=== PATIENT | male | born 1990 | race Caucasian/White ===

== ENCOUNTER → 2021-10-30 11:40 | Outpatient (ROUT) | payer OTHER, SELFPAY ==
[2021-10-30 12:15] LABS: COVID19 -Nasal RAPID POSITIVE (Negative)
== END ==
PROVIDERS: Visit Provider Family Medicine
DX: U07.1 COVID-19 (principal); Z20.822 Contact with and (suspected) exposure to COVID-19
CPT/HCPCS: 87635

== ENCOUNTER → 2023-04-30 15:01 | Outpatient (ROUT) | payer OTHER, SELFPAY ==
[2023-04-30 15:20] LABS: Add Manual Diff / Slide Review NO; Basophils Absolute Auto 0 /uL (0-100); Basophils Percent Auto 0.3 % (0-2); Eosinophils Absolute Auto 200 /uL (0-450); Hematocrit 40.9 % (41-53); Hemoglobin 14.2 g/dL (13.5-17.5); Lymphocytes Absolute Auto 1400 /uL (1100-4500); Lymphocytes Percent Auto 18.6 % (25-40); Mean Corpuscular HGB Conc 34.6 % (30-36); Mean Corpuscular Hemoglobin 31.3 PG (26-34); Mean Corpuscular Volume 90.4 fL (80-100); Monocytes Absolute Auto 400 /uL (0-900); Monocytes Percent Auto 5.8 % (3-14); Neutrophils Absolute Auto 5600 /uL (1500-7000); Neutrophils Percent Auto 73.3 % (50-75); Platelet Count 257 X10^3/uL (150-400); Red Blood Cell Count 4.53 X10^6/uL (4.5-5.9); Red Cell Distribution Width 13.6 % (11.6-14.8); White Blood Cell Count 7.7 X10^3/uL (4.5-11.0)
[2023-04-30 17:38] LABS: Alanine Aminotransferase 28 IU/L (<50); Albumin 4.4 g/dL (3.5-5.0); Albumin Globulin Ratio 1.6 (1.0-2.8); Alkaline Phosphatase 68 U/L (38-126); Aspartate Aminotransferase 33 IU/L (17-59); Bilirubin Total 1.4 mg/dL (0.2-1.3); Blood Urea Nitrogen 15 mg/dL (9-20); Calcium 9.4 mg/dL (8.4-10.2); Carbon Dioxide 25 mmol/L (22-32); Chloride 105 mmol/L (98-107); Estimated Glomerular Filt Rate > 60 mL/min (>60); Globulin 2.7 g/dL (1.7-4.1); Glucose 97 mg/dL (70-100); HEMOLYSIS 17 (0-50); Potassium 5.1 mmol/L (3.4-5.1); Sodium 139 mmol/L (137-145); Total Protein 7.1 g/dL (6.3-8.2)
[2023-04-30 18:14] LABS: Testosterone 472 ng/dL (132-813)
[2023-05-04 17:25] LABS: Clam IgE <0.10 kU/L (Class 0); Crab IgE <0.10 kU/L (Class 0); Lobster IgE <0.10 kU/L (Class 0); Oyster IgE <0.10 kU/L (Class 0); Scallop Allergy IgE < 0.10 kU/L (Class 0); Shrimp IgE <0.10 kU/L (Class 0)
== END ==
PROVIDERS: Visit Provider Family Medicine
DX: Z87.892 Personal history of anaphylaxis (principal); Z00.00 Encounter for general adult medical examination without abnormal findings; R53.1 Weakness
CPT/HCPCS: 80053; 84403; 85025; 86003

== ENCOUNTER → 2024-02-12 11:54 | Outpatient (CLI) | payer OTHER, SELFPAY ==
--- NOTE | 2024-02-12 11:58 | DI.RAD.S_ITS ---
PROCEDURE: XR FOOT RT MIN 3V INDICATIONS: RIGHT FOOT PAIN TECHNIQUE: 3 views of the foot were acquired. COMPARISON: None. FINDINGS: Bones: No fractures or dislocations. No suspicious bony lesions. Mild metatarsus adductus and hallux valgus. 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 Soft tissues: No tibiotalar joint effusion. Achilles tendon appears normal. IMPRESSION: 1. No acute bony abnormality. 2. Mild metatarsus adductus and hallux valgus. 3. 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 Dictated by: Jasmina Newton M.D. on 02/13/2024 at 8:04 Approved by: Jasmina Newton M.D. on 02/13/2024 at 8:05
== END ==
PROVIDERS: Referring Provider Family Medicine; Visit Provider Family Medicine
DX: S93.601A Unspecified sprain of right foot, initial encounter (principal); M20.11 Hallux valgus (acquired), right foot; M19.071 Primary osteoarthritis, right ankle and foot; M21.6X1 Other acquired deformities of right foot; X58.XXXA Exposure to other specified factors, initial encounter
CPT/HCPCS: 73630

== ENCOUNTER 2024-02-27 20:45 | Emergency (ER) | payer OTHER, SELFPAY ==
[2024-02-27 20:52] VITALS: BP 159/95; PULSE 95; RESP 18; TEMP 36.8; O2SAT 99; BMI 38.0
--- NOTE | 2024-02-27 20:56 | DI.RAD.S_ITS ---
PROCEDURE: XR ANKLE LT MIN 3V INDICATIONS: rolled ankle/felt a popx3 TECHNIQUE: 3 views of the ankle were acquired. COMPARISON: None. FINDINGS: Bones: No fractures or dislocations. Ankle mortise is normally aligned. No suspicious bony lesions. Soft tissues: Soft tissue swelling around ankle joint is seen. No tibiotalar joint effusion. Achilles tendon appears normal. IMPRESSION: Soft tissue swelling around ankle joint. No acute ankle fracture or dislocation. Dictated by: Brandon Calvo M.D. on 02/27/2024 at 21:58 Approved by: Brandon Calvo M.D. on 02/27/2024 at 22:00
--- NOTE | 2024-02-27 23:52 | ED.LOWEXIN ---
HPI - Extremity Injury (Lower) General Chief Complaint: Extremity Injury, Lower Stated Complaint: lt ankle injury Time Seen by Provider: 02/27/24 23:52 Source: patient Mode of arrival: Wheelchair History of Present Illness HPI Narrative: 33-year-old male presents for left ankle injury. Patient was playing softball when he accidentally stepped on a ball, inverting his foot. Patient heard a pop when he fell. He states that he was initially able to bear some weight on his foot, however 20 seconds later the pain increased and he was not been able to put his full weight on his foot since that time. Denies other accident or injury Related Data Home Medications Medication Instructions Recorded Confirmed fexofenadine-pseudoephedrine ER ##0 04/24/13 180 mg-240 mg tablet,ext.release 24 hr (Farzana-D 24 Hour) ibuprofen 200 mg tablet (Advil) 400 ##0 04/24/13 Allergies Allergy/AdvReac Type Severity Reaction Status Date / Time AMOXICILLIN Allergy Unknown Uncoded 01/08/18 12:13 PENICILLIN Allergy Unknown Uncoded 01/08/18 12:13 Review of Systems Review of Systems Narrative: See HPI Patient History Social History Smoking Status: Current every day smoker Smoking Status: Current every day smoker tobacco type: vaping alcohol intake frequency: a few times a month Substance Use Type: does not use Exam Initial Vital Signs Initial Vital Signs: Vital Signs Temperature 98.2 F 02/27/24 20:52 Pulse Rate 95 H 02/27/24 20:52 Respiratory Rate 18 02/27/24 20:52 Blood Pressure 159/95 H 02/27/24 20:52 Pulse Oximetry 99 02/27/24 20:52 Oxygen Delivery Method Room Air 02/27/24 20:52 Const: Awake, alert, no acute distress, nontoxic appearing MSK: [id number] lateral malleolar swelling, tenderness to palpation lateral malleolus, palpable DP pulses Skin: Warm, Dry, intact, no rashes Neuro: AO x3, CN II-XII grossly intact, moves all extremities Course Orders Ordered: Discontinued Medications Ketorolac Tromethamine (Ketorolac 30 Mg/Ml Vial) 30 mg IM NOW ONE Stop: 02/28/24 00:06 Last Admin: 02/28/24 00:15 Dose: 30 mg Documented By: [facility] Oxycodone/Acetaminophen (Oxycodone/Acetaminophen 5/325 Tablet) 1 tab PO NOW ONE Stop: 02/28/24 00:06 Last Admin: 02/28/24 00:15 Dose: 1 tab Documented By: CELIA Vital Signs Vital signs: Vital Signs - 8 hr 02/28/24 00:09 Pulse Rate 75 Respiratory Rate 16 Blood Pressure 148/76 H Pulse Oximetry 99 MDM - Extremity Injury (Lower) Differential Diagnosis Differential diagnosis: Likely ankle sprain and strain, puncture wound of foot and fracture of toe Imaging Data Extremity x-ray #1: Radiologist's Impression: PROCEDURE: XR ANKLE LT MIN 3V INDICATIONS: rolled ankle/felt a popx3 TECHNIQUE: 3 views of the ankle were acquired. COMPARISON: None. FINDINGS: Bones: No fractures or dislocations. Ankle mortise is normally aligned. No suspicious bony lesions. Soft tissues: Soft tissue swelling around ankle joint is seen. No tibiotalar joint effusion. Achilles tendon appears normal. IMPRESSION: Soft tissue swelling around ankle joint. No acute ankle fracture or dislocation. Dictated by: Brandon Calvo M.D. on 02/27/2024 at 21:58 Approved by: Brandon Calvo M.D. on 02/27/2024 at 22:00 [facility] Narrative Medical decision making narrative: Inversion injury with lateral ankle pain. Neurovascularly intact. X-rays negative for acute fracture. Placed in Sukumar wrap bandage, patient declined crutches stating that he had a pair that fits him at home. Rice instructions counseled at bedside. Pain medications given to patient prior to departure. Discharge Plan Departure Patient Disposition: Home Clinical Impression: Ankle sprain and strain Instructions: DI for Ankle Sprain Activity Restrictions/Additional Instructions: You may take up to 400 mg of ibuprofen and 1000 mg of Tylenol every 6 hours as needed for pain. Take no more than 4000 mg of Tylenol daily. Apply ice to areas of swelling. Elevate your limb above heart level to decrease swelling. Prescriptions: No Action fexofenadine-pseudoephedrine [Farzana-D 24 Hour] 180 MG/240 MG tablet extended release 24 hr Qty: 0 ibuprofen [Advil] 200 MG tablet 400 Qty: 0 Referrals: Catrina Gunter MD [Primary Care Provider] - Stand Alone Forms: Patient Portal/API, Work Release Note
[2024-02-28 00:09] VITALS: BP 148/76; PULSE 75; RESP 16; O2SAT 99
[2024-02-28] MEDS: OXYCODONE/ACETAMINOPHEN 5/325 TABLET 1 TAB PO (00:15)
[2024-02-28] MEDS: KETOROLAC 30 MG/ML VIAL IM (00:15)
== END 2024-02-28 00:21 | disposition home or self-care (01) ==
PROVIDERS: Emergency Provider Emergency Medicine; PCP Family Medicine
DX: S93.402A Sprain of unspecified ligament of left ankle, initial encounter (principal); S96.912A Strain of unspecified muscle and tendon at ankle and foot level, left foot, initial encounter; W21.07XA Struck by softball, initial encounter; Y93.64 Activity, baseball
CPT/HCPCS: 73610; 96372; 99283; J1885

== ENCOUNTER → 2024-03-05 07:35 | Outpatient (CLI) | payer OTHER, SELFPAY ==
--- NOTE | 2024-03-05 07:36 | DI.MRI.S_ITS ---
PROCEDURE: MR ANKLE LT WO CON INDICATIONS: Left ankle guanaco TECHNIQUE: Noncontrast sagittal T1 spin echo and T2 fast spin echo with fat saturation, axial proton density fast spin echo and T2 fast spin echo with fat saturation, coronal T1 spin echo and T2 fast spin echo with fat saturation through the ankle/hindfoot. COMPARISON: [facility], CR, XR ANKLE LT MIN 3V, 02/27/2024, 21:27. FINDINGS: Image quality: Excellent. Bones and joints: There is diffuse ankle soft tissue swelling and edema particularly along anterior lateral aspect of distal lower leg and hindfoot. There is mild bony contusion involving medial malleolus, medial and posterior periphery of talus without discrete fracture line. No acute fracture or dislocation. No hindfoot coalitions. No osteochondral injuries of the talar dome. Small to moderate amount of tibiotalar and subtalar joint effusion is seen, no gross loose bodies. Medial structures: The posterior tibialis, flexor digitorum longus, and flexor hallucis longus tendons are intact. [id number] amount of fluid distending flexor tendon sheath is seen. The posterior tibial neurovascular bundle appears normal within the tarsal tunnel, without extrinsic mass effect. Thickened deep fibers of deltoid ligament is seen. The spring ligament complex is intact. Lateral structures: There is moderate to high-grade partial-thickness tear involving anterior talofibular ligament near its lateral insertion. The calcaneofibular, and posterior talofibular ligaments appear thickened with intrasubstance T2 hyperintense signal. More superiorly, the anterior and posterior tibiofibular ligaments also appears thickened with intrasubstance T2 hyperintense signal.. The tibiofibular syndesmosis is normal in width at 2 mm or less. The peroneus brevis tendon is intact. Thickened peroneus longus tendon at the level of mid to distal calcaneus extending to its distal insertion is seen. The sinus tarsi demonstrates normal fatty signal, without edema, fibrosis, or cyst formation. Visualized sinus tarsi components (cervical ligament, interosseous talocalcaneal ligament, roots of the inferior extensor retinaculum) appear normal. Anterior structures: Significant subcutaneous soft tissue edema and fluid along anterolateral aspect of distal lower leg and hindfoot is seen. No discrete drainable fluid collection is identified. The tibialis anterior, extensor hallucis longus, and extensor digitorum longus tendons appear intact. The dorsal talonavicular ligament appears intact. Posterior and plantar structures: Achilles tendon is intact. Medial and lateral bands of the plantar fascia are of normal thickness. No abductor digiti quinti muscle atrophy to suggest Sanderson neuropathy. IMPRESSION: 1. Diffuse ankle soft tissue swelling and edema particularly over anterolateral aspect of distal lower leg and hindfoot. No discrete drainable fluid collection. No soft tissue mass is seen. 2. Bony contusion involving medial malleolus and medial periphery of talus. No fracture or dislocation. No osteochondral injuries of talar dome. Small to moderate amount of joint effusion, no loose bodies. 3. Low-grade tenosynovitis involving flexor tendons. 4. Mild tendinosis involving peroneus longus tendon at the level of mid to distal calcaneus extending to its distal insertion. 5. Moderate to high-grade partial-thickness tear involving anterior talofibular ligament near its lateral insertion. Sprain/low-grade intrasubstance partial-thickness tear involving rest of the lateral ankle ligaments. Low-grade intrasubstance partial-thickness tear involving deep fibers of deltoid ligament. Dictated by: Brandon Calvo M.D. on 03/05/2024 at 11:10 Approved by: Brandon Calvo M.D. on 03/05/2024 at 14:22
== END ==
PROVIDERS: PCP Family Medicine; Referring Provider Family Medicine; Visit Provider Family Medicine
DX: S93.492A Sprain of other ligament of left ankle, initial encounter (principal); S93.422A Sprain of deltoid ligament of left ankle, initial encounter; S90.02XA Contusion of left ankle, initial encounter; M65.872 Other synovitis and tenosynovitis, left ankle and foot; M79.89 Other specified soft tissue disorders; X58.XXXA Exposure to other specified factors, initial encounter
CPT/HCPCS: 73721

== ENCOUNTER → 2025-08-10 07:40 | Outpatient (CLI) | payer OTHER, SELFPAY ==
--- NOTE | 2025-08-10 07:41 | DI.MRI.S_ITS ---
PROCEDURE: MR KNEE LT WO CON
== END ==
PROVIDERS: PCP Family Medicine; Referring Provider Family Medicine; Visit Provider Family Medicine
DX: S80.02XA Contusion of left knee, initial encounter (principal); M70.42 Prepatellar bursitis, left knee; M22.42 Chondromalacia patellae, left knee
CPT/HCPCS: 73721